=== PATIENT | female | born 1975 | race Caucasian/White ===

== ENCOUNTER → 2020-07-05 08:30 | Outpatient (BNVA) | payer OTHER, SELFPAY | PROVIDERS: Family Provider Family Medicine; PCP Nurse Practitioner Family; Referring Provider Orthopaedic Surgery; Visit Provider Anesthesiology Pain Medicine | DX: M54.9 Dorsalgia, unspecified (principal); M51.36 Other intervertebral disc degeneration, lumbar region; M43.10 Spondylolisthesis, site unspecified; M62.830 Muscle spasm of back | CPT/HCPCS: 99205 ==

== ENCOUNTER → 2020-08-02 12:57 | Outpatient (BNVA) | payer OTHER, SELFPAY | PROVIDERS: Family Provider Family Medicine; PCP Family Medicine; Visit Provider Anesthesiology Pain Medicine | DX: M54.42 Lumbago with sciatica, left side (principal); M54.9 Dorsalgia, unspecified; M51.36 Other intervertebral disc degeneration, lumbar region; M43.10 Spondylolisthesis, site unspecified; M62.830 Muscle spasm of back | CPT/HCPCS: 99214 ==

== ENCOUNTER → 2020-08-13 13:41 | Outpatient (BNVA) | payer OTHER, SELFPAY | PROVIDERS: Family Provider Family Medicine; PCP Family Medicine; Visit Provider Anesthesiology Pain Medicine | DX: M47.816 Spondylosis without myelopathy or radiculopathy, lumbar region (principal); M54.9 Dorsalgia, unspecified | CPT/HCPCS: 64493; 64494; 64495; J1040; J3490 ==

== ENCOUNTER → 2020-08-28 10:20 | Outpatient (BNVA) | payer OTHER, SELFPAY | PROVIDERS: Family Provider Family Medicine; PCP Family Medicine; Visit Provider Anesthesiology Pain Medicine | DX: M54.9 Dorsalgia, unspecified (principal); M51.36 Other intervertebral disc degeneration, lumbar region; M43.10 Spondylolisthesis, site unspecified; M62.830 Muscle spasm of back | CPT/HCPCS: 99213 ==

== ENCOUNTER → 2020-10-30 09:32 | Outpatient (BNVA) | payer OTHER, SELFPAY | PROVIDERS: Family Provider Family Medicine; PCP Family Medicine; Visit Provider Anesthesiology Pain Medicine | DX: G89.29 Other chronic pain (principal); M54.9 Dorsalgia, unspecified; M54.42 Lumbago with sciatica, left side; M51.36 Other intervertebral disc degeneration, lumbar region; M43.10 Spondylolisthesis, site unspecified; M79.605 Pain in left leg; M62.830 Muscle spasm of back | CPT/HCPCS: 99212; 99213 ==

== ENCOUNTER → 2021-09-03 09:23 | Outpatient (BNVA) | payer OTHER, SELFPAY | PROVIDERS: Family Provider Family Medicine; PCP Family Medicine; Visit Provider Clinical Nurse Specialist Adult Health | DX: R42 Dizziness and giddiness (principal); R11.10 Vomiting, unspecified | CPT/HCPCS: 80053; 80061; 83036; 83735; 85025; 86140; 86200 ==

== ENCOUNTER → 2021-10-18 08:54 | Outpatient (BNVA) | payer OTHER, BC, MEDICAID, SELFPAY | PROVIDERS: Family Provider Family Medicine; PCP Family Medicine; Visit Provider Clinical Nurse Specialist Adult Health | DX: R74.8 Abnormal levels of other serum enzymes (principal); E78.5 Hyperlipidemia, unspecified | CPT/HCPCS: 80061; 80076 ==

== ENCOUNTER 2021-11-17 11:35 | Emergency (ER) | payer OTHER, BC, MEDICAID, SELFPAY ==
[2021-11-17 11:47] VITALS: BP 160/106; PULSE 112; RESP 16; TEMP 36.2; O2SAT 99
--- NOTE | 2021-11-17 12:11 | W.ED.GENADLT ---
HPI - General Adult General: Chief complaint: General Medical Stated complaint: V/D muscle aches, Dissy Time Seen by Provider: 11/17/21 11:56 Source: patient and family Mode of arrival: ambulatory Limitations: no limitations History of Present Illness: This patient comes to emergency department accompanied by family member. She is here because she has had several months of episodic 2-3 duration hot flashes vomiting shaking and muscle cramps. She also gets associated episodes of vomiting without warning during these episodes. She occasionally gets loose stools. She states that symptoms onset was approximately March of last year and have been on a monthly basis since that time. She states that these last for 2 to 3 days of duration. She states that also since that time she is only had 1 episode of menstrual bleeding. She apparently seen a nurse practitioner for the symptoms who state they state get some blood work, gave her some BuSpar as well as some Zofran in an attempt to treat the symptoms. She is not receiving hormonal therapy. She occasionally uses medical marijuana because of chronic low back pain. She also occasionally uses cyclobenzaprine training for that same condition. She takes duloxetine but has done so for over a year. She also occasionally takes meloxicam for her back pain. She denies any fluctuations in blood pressure etc. with these episodes. She states she does feel occasional episodes of palpitations but has not had any syncope etc. No history of arrhythmias. She denies any focal weakness or numbness but just generalized cramping and restlessness. She occasionally drinks alcohol. She occasionally uses caffeinated beverages. No known history of periodic paralysis or potassium abnormalities in the family. No history pheochromocytoma in the family that she is aware. Pain Consistency: intermittent Associated symptoms: Reports nausea and vomiting; Deny chest pain, confusion, dyspnea, headache(s), rash or syncope Review of Systems Const: Denies: fever(s), chills, body aches or change in appetite Eyes: Denies: change in vision ENMT: Denies: odynophagia or nasal congestion Card: Denies: chest pain, irregular heart rhythm, edema, syncope, pre-syncope or dyspnea on exertion Resp: Denies: dyspnea, productive cough or non-productive cough GI: Reports: nausea, vomiting and diarrhea; Denies: hematemesis or constipation : Denies: flank pain, difficulty voiding, dysuria, urinary frequency, vaginal bleeding, vaginal discharge or pelvic pain Musc: Reports: back pain; Denies: neck pain or extremity swelling Skin/Breast: Denies: rash, pruritus or erythema Neuro: Denies: headache(s), numbness in extremities, weakness in extremities, vertigo or confusion Psych: Reports: anxiety, depression and mood swings; Denies: suicidal ideation or homicidal ideation Endo: Denies: polyuria or polydipsia Raymundo/Lymph: Denies: easy bruising or easy bleeding PFSH ED PFSH: Family History Father Cancer Clotting disorder Mother No pertinent past medical history Social History Smoking and tobacco status: former smoker (20 plus years ago) Alcohol intake: current Alcohol intake frequency: holidays/special occasions only Current occupational status: employed History of recent travel: No Physical Exam Narrative: EXAM NARRATIVE: Patient appears somewhat uncomfortable and slightly anxious but is able to answer questions in a goal-directed fashion. She makes good eye contact. Const: COMMON NORMALS: average body habitus, patient oriented x3, healthy appearing and alert GENERAL APPEARANCE: cooperative HENMT: COMMON NORMALS: normocephalic, Normal nasal mucous membranes and turbinates present and oropharynx normal HEAD & SCALP: normocephalic FACE & SINUS: normal facial exam NOSE: Normal nasal mucous membranes and turbinates present Eye: COMMON NORMALS: Equal, round and reactive pupils present, EOMs intact bilaterally and conjunctivae normal CONJUNCTIVA: Yes conjunctivae normal PUPIL: Yes Equal, round and reactive pupils present Neck/C-Spine: COMMON NORMALS: full ROM, no lymphadenopathy, no JVD, Thyroid normal and No carotid bruits THYROID: Thyroid normal Lymph: LYMPHATIC: no lymphadenopathy noted Chest: COMMONS NORMALS: normal inspection of the chest Resp: COMMON NORMALS: normal respiratory effort, No retractions, No use of accessory muscles and clear to auscultation bilaterally EFFORT & INSPECTION: Yes able to speak in complete sentences AUSCULTATION: clear to auscultation bilaterally Cardio: COMMON NORMALS: no JVD, regular rate, regular rhythm, No murmurs present (Cardio) and Peripheral pulses 2+ throughout RATE: regular rate RHYTHM: regular rhythm PERIPHERAL PULSES: Peripheral pulses 2+ throughout GI: COMMON NORMALS: Normal to inspection, nondistended, normoactive bowel sounds present, Soft to palpation, non-tender, No hepatosplenomegaly present, no masses and no bruits PALPATION: Yes Soft to palpation and Yes No hepatosplenomegaly present : COMMON NORMALS: Yes no CVA tenderness BLADDER/KIDNEY EXAM: Yes no CVA tenderness Back/Pelvis: COMMON NORMALS: no CVA tenderness, thoracic and lumbar spine normal to inspection, no thoracic nor lumbar tenderness, thoraco-lumbar ROM normal and straight leg raise negative bilaterally Extremity: COMMON NORMALS: normal to inspection, full ROM, capillary refill normal, no joint enlargement, no clubbing, cyanosis or edema, no calf tenderness and no pedal edema Neuro: COMMON NORMALS: patient oriented x3, moves all extremities, no focal motor deficits and no sensory deficits noted SENSORIUM/ORIENTATION: Yes alert CRANIAL NERVES: Yes CN normal except as noted SPEECH: speech normal Psych: COMMON NORMALS: mental status grossly normal, Normal thought process present, speech normal, denies hallucinations, denies homicidal ideation and denies suicidal ideation ACTIVITY/MOTOR BEHAVIOR: Yes restless SPEECH: Yes normal speech THOUGHT PROCESS: Normal thought process present Skin: COMMON NORMALS: no rashes or lesions noted, no wounds, turgor normal and no jaundice GENERAL SKIN EXAM: no rashes or lesions noted and turgor normal Course Reevaluation(s): Reevaluation #1: Patient is feeling improved. Discussed current findings. She has an incidental urinary tract infection we will go ahead and provide treatment. I do not feel that this is a significant factor in her current presentation however. She also has incidental hypomagnesemia. Whether or not this represents total magnesium deficit or not is not clear but it certainly could contribute to her subjective muscle cramping. Her FSH is elevated not to a perimenopausal state but certainly in the level 1 would expect with ovulation and apparently she is having ovulatory phase failure given her lack of menses for the last several months. She certainly clinically stable and improved and no evidence of an ongoing emergency medical condition but she needs additional work-up. We will plan on having her see gynecology for further evaluation and consideration of empiric therapy. They voiced understanding the plan of care. Stable at this time. Time: 15:11 Vital Signs: Vital signs: Vital Signs Temperature 97.1 F L 11/17/21 11:47 Pulse Rate 112 H 11/17/21 11:47 Respiratory Rate 16 11/17/21 11:47 Blood Pressure 160/106 11/17/21 11:47 Pulse Oximetry 99 11/17/21 11:47 MDM - General Adult Medical Decision Making Patient with clinical picture and subjective symptoms suggestive of perimenopausal symptoms. She does have history of having being amenorrheic for several months as well. No evidence at this time of an ongoing serious condition. She is subjectively improved. She is being treated for an incidental urinary tract infection and advised to take magnesium supplements. She will need further follow-up and she understands that plan of care. Lab Data I reviewed the patient's lab results. : 11/17/21 12:20 11/17/21 13:24 Laboratory Results WBC 10.0 10^3/uL (4.0-10.0) 11/17/21 12:20 RBC 4.57 10^6/uL (4.1-5.3) 11/17/21 12:20 Hgb 13.5 g/dL (11.5-15.3) 11/17/21 12:20 Hct 39.1 % (37.0-47.0) 11/17/21 12:20 MCV 85.6 fl (81-99) 11/17/21 12:20 MCH 29.5 pg (28.0-34.0) 11/17/21 12:20 MCHC 34.5 g/dL (30.0-36.0) 11/17/21 12:20 RDW 15.7 % (12.1-15.1) H 11/17/21 12:20 Plt Count 331 10^3/cmm (130-400) 11/17/21 12:20 MPV 9.9 fL (7.4-10.4) 11/17/21 12:20 Neut % (Auto) 79.7 % 11/17/21 12:20 Lymph % (Auto) 8.9 % 11/17/21 12:20 Bond % (Auto) 9.8 % 11/17/21 12:20 Eos % (Auto) 0.4 % 11/17/21 12:20 Baso % (Auto) 0.8 % 11/17/21 12:20 Neut # (Auto) 8.01 10^3/uL (1.8-7.7) H 11/17/21 12:20 Lymph # (Auto) 0.9 10^3/uL (0.8-4.8) 11/17/21 12:20 Bond # (Auto) 1.0 10^3/uL (0.2-0.9) H 11/17/21 12:20 Eos # (Auto) 0.0 10^3/uL (0.0-0.8) 11/17/21 12:20 Baso # (Auto) 0.1 10^3/uL (0.0-0.1) 11/17/21 12:20 Nucleated RBC % (auto) 0 % 11/17/21 12:20 Nucleated RBCs # 0.0 /100WBC 11/17/21 12:20 Sodium 139 mmol/L (136-145) 11/17/21 13:24 Potassium 3.7 mmol/L (3.5-5.1) 11/17/21 13:24 Chloride 98 mmol/L (98-107) 11/17/21 13:24 Carbon Dioxide 21 mmol/L (22-29) L 11/17/21 13:24 Anion Gap 23.7 (5-19) H 11/17/21 13:24 BUN 11 mg/dL (6-20) 11/17/21 13:24 Creatinine 0.8 mg/dL (0.5-0.9) 11/17/21 13:24 GFR Calculation 77.6 mL/min (90-130) L 11/17/21 13:24 Glucose 87 mg/dL (65-115) 11/17/21 13:24 Calculated Osmolality 287 mOsm/kg (285-295) 11/17/21 13:24 Calcium 8.9 mg/dL (8.5-10.5) 11/17/21 13:24 Magnesium 1.6 mg/dL (1.7-2.3) L 11/17/21 13:24 Total Bilirubin 0.6 mg/dL (0.15-1.2) 11/17/21 13:24 AST 90 U/L (0-32) H 11/17/21 13:24 ALT 47 U/L (0-33) H 11/17/21 13:24 Alkaline Phosphatase 114 IU/L (35-105) H 11/17/21 13:24 Total Protein 7.3 g/dL (6.6-8.7) 11/17/21 13:24 Albumin 4.2 g/dL (3.5-5.2) 11/17/21 13:24 Globulin 3.1 g/dL (1.3-4.6) 11/17/21 13:24 TSH 2.76 uIU/mL (0.27-4.20) 11/17/21 13:24 FSH 18.1 mIU/mL 11/17/21 13:24 HCG, Qual Negative (Negative) 11/17/21 12:20 Urine Color Yellow (Yellow) 11/17/21 12:20 Urine Appearance Sl hazy (CLEAR) 11/17/21 12:20 Urine pH 6 (5-7) 11/17/21 12:20 Ur Specific [place] 1.015 (1.005-1.030) 11/17/21 12:20 Urine Protein Neg (Negative) 11/17/21 12:20 Urine Glucose (UA) Norm (Normal) 11/17/21 12:20 Urine Ketones 1+ (Negative) H 11/17/21 12:20 Urine Blood Trace (Negative) H 11/17/21 12:20 Urine Nitrate Negative (Negative) 11/17/21 12:20 Urine Bilirubin Neg (Negative) 11/17/21 12:20 Urine Urobilinogen Norm mg/dL (Negative) 11/17/21 12:20 Ur Leukocyte Esterase Negative (Negative) 11/17/21 12:20 Urine RBC Rare /hpf (0-2) 11/17/21 12:20 Urine WBC 15-25 /hpf (0-5) H 11/17/21 12:20 Ur Squamous Epith Cells 5-10 /hpf (0-5) H 11/17/21 12:20 Amorphous Sediment Not Reportable 11/17/21 12:20 Urine Bacteria 1+ /hpf (NONE) H 11/17/21 12:20 EKG Data EKG 1: Interpretation: Patient's ventricular rate is 97 bpm. She has suggestion of possible left atrial enlargement on voltage criteria. She has normal [place] interval normal QRS duration. QTc is normal. [place] are all normal. ST segments are up coved and I do not feel that this is a significant change despite computerized statement. Discharge Plan Discharge Patient Disposition: Home Clinical Impression: Hot flushes, perimenopausal, Hypomagnesemia, Urinary tract infection Condition: Stable Prescriptions: New Ativan 1 mg tablet 1 mg PO DAILY MDD 1mg PRN (Reason: agitation) Qty: 7 0RF nitrofurantoin monohyd/m-cryst [Macrobid] 100 mg capsule 100 mg PO BID 5 Days Qty: 10 0RF Rx Instructions: must administer with a meal/food No Action meloxicam 15 mg tablet 15 mg PO DAILY 0RF cyclobenzaprine 10 mg tablet 10 mg PO DAILY 0RF duloxetine [Cymbalta] 20 mg capsule,delayed release(DR/EC) 20 mg PO BID 0RF alprazolam [Xanax] 0.25 mg tablet 0.25 mg PO DAILY PRN0RF Discharge Orders: Discharge ED (Routine); Ordered 11/17/21 Ordered By: Garry Ham Referrals: David Carlos DO [Primary Care Provider] - Discharge Diet: Usual diet Discharge Activity: Increase activity as tolerated Patient Instructions: Menopause, Opioid Safety Activity Restrictions/Additional Instructions: Take the medications we have prescribed to help with your symptoms. Also purchase magnesium oxide 400 mg tablets and take 1 of these twice daily. Case management will contact you regarding gynecology referral or you may contact gynecology at your own choosing. If you develop new or persistent or worsening symptoms return to this or the nearest emergency department. Coding Level of Care Code ED Computer Systems Administrator for Pricila Mcmahon Exam Comprehensive
--- NOTE | 2021-11-17 12:19 | ECG_ITS ---
[facility] Test Date: 2021-11-17 Pat Name: Corina Presley Department: Room: Gender: Female [employer] Preparer: : 1975 Requested By: Garry Ham Order Number: [id number] Pierson MD: Roly Arias M.D. Measurements Intervals [place] Rate: 97 P: 72 [place]: 133 QRS: 55 QRSD: 86 T: 45 QT: 355 QTc: 452 Interpretive Statements SINUS RHYTHM POSSIBLE LEFT ATRIAL ENLARGEMENT [-0.1mV P WAVE IN V1/V2] MODERATE ST DEPRESSION [0.05+ mV ST DEPRESSION] No previous ECG available for comparison Electronically Signed On 11-18-2021 18:14:24 CDT by Roly Arias M.D. [id number]
[2021-11-17] MEDS: lactated ringers 1,000 ML 999 ML IV (12:34)
[2021-11-17] MEDS: LORazepam 2 mg/mL INJ 1 mL 1 MG IVP (12:35)
[2021-11-17 13:00] LABS: Basophils # 0.1 10^3/uL (0.0-0.1); Basophils % 0.8 %; Eosinophils % 0.4 %; Hematocrit 39.1 % (37.0-47.0); Hemoglobin 13.5 g/dL (11.5-15.3); Lymphocytes # 0.9 10^3/uL (0.8-4.8); Lymphocytes % 8.9 %; Mean Corpuscular HGB Conc 34.5 g/dL (30.0-36.0); Mean Corpuscular Hemoglobin 29.5 pg (28.0-34.0); Mean Corpuscular Volume 85.6 fl (81-99); Mean Platelet Volume 9.9 fL (7.4-10.4); Monocytes % 9.8 %; Neutrophils # 8.01 10^3/uL (1.8-7.7); Neutrophils % 79.7 %; Nucleated Red Blood Cells % 0 %; Platelet Count 331 10^3/cmm (130-400); Red Blood Count 4.57 10^6/uL (4.1-5.3); Red Cell Distribution Width 15.7 % (12.1-15.1)
[2021-11-17 13:12] LABS: HCG Qualitative Urine. Negative (Negative)
[2021-11-17 13:22] LABS: Add Urine Microscopic? YES; Bilirubin Urine Neg (Negative); Blood Urine Trace (Negative); Glucose Urine UA Norm (Normal); Ketones Urine 1+ (Negative); Leukocyte Esterase Urine Negative (Negative); Nitrate Urine Negative (Negative); Protein Urine Neg (Negative); Specific Gravity, Urine 1.015 (1.005-1.030); Urine Appearance SL Hazy (CLEAR); Urine Color Yellow (Yellow); Urobilinogen Urine Norm (Negative); pH Urine 6 (5-7)
[2021-11-17 13:23] LABS: RBC Urine RARE /hpf (0-2); WBC Urine 15-25 /hpf (0-5)
[2021-11-17 13:24] LABS: Bacteria Urine 1+ /hpf
[2021-11-17 13:25] LABS: Add Urine Culture? No
[2021-11-17 14:14] LABS: Alanine Aminotransferase 47 U/L (0-33); Albumin Level 4.2 g/dL (3.5-5.2); Alkaline Phosphatase 114 IU/L (35-105); Anion Gap 23.7 (5-19); Aspartate Amino Transferase 90 U/L (0-32); Blood Urea Nitrogen 11 mg/dL (6-20); Calcium 8.9 mg/dL (8.5-10.5); Carbon Dioxide 21 mmol/L (22-29); Chloride 98 mmol/L (98-107); Follicle Stimulating Hormone 18.1 mIU/mL; Globulin 3.1 g/dL (1.3-4.6); Glomerular Filtration Rate 77.6 mL/min (90-130); Glucose 87 mg/dL (65-115); Magnesium 1.6 mg/dL (1.7-2.3); Osmolality Calculated 287 mOsm/kg (285-295); Potassium 3.7 mmol/L (3.5-5.1); Sodium 139 mmol/L (136-145); Thyroid Stimulating Hormone 2.76 uIU/mL (0.27-4.20); Total Bilirubin 0.6 mg/dL (0.15-1.2); Total Protein 7.3 g/dL (6.6-8.7)
[2021-11-17 15:32] VITALS: BP 149/107; PULSE 101; RESP 20; O2SAT 100
--- NOTE | 2021-11-18 13:50 | DCPLANNER ---
Addendum entered by Anastasiia Erwin 12/24/21 16:20: Patient had a follow up appointment scheduled with [facility] - patient did attend appointment. Addendum entered by Anastasiia Erwin 11/26/21 14:30: Patient has a follow up appointment scheduled for Thursday, December 11, 2021 at 9:30 with Noé GUZMAN at [facility]. Clinic will call patient with appointment information. Original Note: administration manager had message to schedule a follow up appointment for patient with [facility]. administration manager sent patients information to the front office staff at [facility]. Patients information will be printed and reviewed. Clinic will call patient with appointment information.
== END 2021-11-17 15:33 | disposition home or self-care (01) ==
PROVIDERS: Emergency Provider Emergency Medicine; PCP Family Medicine
DX: N95.1 Menopausal and female climacteric states (principal); N39.0 Urinary tract infection, site not specified; E83.42 Hypomagnesemia; Z87.891 Personal history of nicotine dependence
CPT/HCPCS: 80053; 81001; 81025; 83001; 83735; 84443; 85025; 93005; 96374; 99284; J2060

== ENCOUNTER → 2021-12-11 10:36 | Outpatient (BNVA) | payer OTHER, BC, MEDICAID, SELFPAY | PROVIDERS: PCP Family Medicine; Visit Provider Nurse Practitioner Women's Health | DX: Z01.419 Encounter for gynecological examination (general) (routine) without abnormal findings (principal); N91.5 Oligomenorrhea, unspecified; N91.2 Amenorrhea, unspecified; N95.1 Menopausal and female climacteric states; Z12.4 Encounter for screening for malignant neoplasm of cervix | CPT/HCPCS: 82670; 84146; 84702; 87624 ==

== ENCOUNTER → 2021-12-17 13:46 | Outpatient (BNVA) | payer OTHER, BC, MEDICAID, SELFPAY | PROVIDERS: PCP Family Medicine; Visit Provider Nurse Practitioner Women's Health | DX: N91.2 Amenorrhea, unspecified (principal) | CPT/HCPCS: 76830 ==

== ENCOUNTER → 2023-02-09 12:12 | Outpatient (BNVA) | payer BC, MEDICAID, SELFPAY | PROVIDERS: PCP Clinical Nurse Specialist Adult Health; Visit Provider Internal Medicine Rheumatology | DX: Z79.899 Other long term (current) drug therapy (principal); M19.90 Unspecified osteoarthritis, unspecified site; Z11.59 Encounter for screening for other viral diseases; M45.6 Ankylosing spondylitis lumbar region; Z11.1 Encounter for screening for respiratory tuberculosis; R76.8 Other specified abnormal immunological findings in serum; I73.00 Raynaud's syndrome without gangrene; R21 Rash and other nonspecific skin eruption; L56.8 Other specified acute skin changes due to ultraviolet radiation | CPT/HCPCS: 36415; 80076; 82306; 82565; 84439; 84443; 85025; 85651; 86480; 86704; 86803; 86812; 87340 ==

== ENCOUNTER 2023-09-08 15:51 | Outpatient (CLI) | payer BC, MEDICAID, SELFPAY ==
[2023-09-08 16:26] LABS: Basophils # 0.1 10^3/uL (0.0-0.1); Eosinophils # 0.2 10^3/uL (0.0-0.8); Eosinophils % 4.8 %; Hematocrit 34.1 % (36-47); Lymphocytes # 1.6 10^3/uL (0.8-4.8); Lymphocytes % 32.6 %; Mean Corpuscular HGB Conc 33.1 g/dL (30-55); Mean Corpuscular Hemoglobin 32.1 pg (27-33); Mean Corpuscular Volume 96.9 fl (85-98); Mean Platelet Volume 10.3 fL (7.4-10.4); Monocytes # 0.5 10^3/uL (0.2-0.9); Monocytes % 9.8 %; Neutrophils # 2.46 10^3/uL (1.8-7.7); Neutrophils % 51.6 %; Nucleated Red Blood Cells % 0 %; Platelet Count 222 10^3/cmm (157-399); Red Blood Count 3.52 10^6/uL (3.85-5.65); Red Cell Distribution Width 16.2 % (12.1-15.1); White Blood Count 4.78 10^3/uL (3.29-11.43)
[2023-09-08 17:22] LABS: Alanine Aminotransferase 18 U/L (0-33); Albumin Level 4.5 g/dL (3.5-5.2); Alkaline Phosphatase 81 U/L (35-105); Aspartate Amino Transferase 23 U/L (0-32); Glomerular Filtration Rate 76.9 mL/min (90-130); Total Bilirubin 0.6 mg/dL (0.15-1.2); Total Protein 7.5 g/dL (6.6-8.7)
== END 2023-09-08 15:52 | disposition home or self-care (01) ==
LOC: LAB 15:53
PROVIDERS: PCP Nurse Practitioner Family; Visit Provider Internal Medicine Rheumatology
DX: M19.90 Unspecified osteoarthritis, unspecified site (principal); Z79.899 Other long term (current) drug therapy
CPT/HCPCS: 36415; 80076; 82565; 85025; 86140

== ENCOUNTER 2024-06-26 16:49 | Emergency (ER) | payer BC, MEDICAID, SELFPAY ==
[2024-06-26] VITALS (7 sets, daily range): BP systolic 149–167; BP diastolic 95–113; PULSE 76–88; RESP 16–17; TEMP 36.5; O2SAT 98–100; BMI 24.9
--- NOTE | 2024-06-26 17:26 | W.ED.HA ---
Documented by User: Christie Ordaz MD 06/26/24 17:32 HPI - Headache General: Chief Complaint: Headache Stated Complaint: migraine Time Seen by Provider: 06/26/24 17:12 History of Present Illness: This patient is a 48-year-old female presenting with what she believes to be a migraine headache. She reports a history of migraines but has not had one in several years. When she has had them they have been similar to the symptoms she has currently. This headache started around 2 this afternoon. She reports that she has been sick for the past few days. On she had an episode of vomiting and diarrhea. She has not had any further vomiting but does continue to have diarrhea. She slept a lot Thursday and Thursday but this morning got up feeling well. She cleaned the house. She felt the headache coming on and took some ibuprofen and went to lay down. Initially she thought it was just an average headache but it continued to worsen. She then thought it was probably a migraine and took 50 mg of sumatriptan. An hour later when she did not have relief she took a second dose which also did not help. She notes that the prescription is from 2020 and is . She is having trouble focusing to read. She is having trouble thinking. Her pain is in the back of her head as well as over across her forehead. It is worse with being up and moving around. Noise and light make it worse. She is nauseous but has not vomited. She notes that she is frequently nauseous and does not really think that is unusual today. Her medication list includes a number of things that she is not actually taking and has not been on for around a year. She has seen a trademark paralegal for joint pain and swelling and had positive ISAIAH. She does not think she ever got a definitive diagnosis. She had been on several different types of medication for her rheumatologic symptoms but they all seem to make her sick so she has not been on any of them for nearly a year. She denies other significant medical history. She does have some chronic lower back pain. She has had injections of her SI joints and nerve ablation with the most recent being done this past summer. Related Data Home Medications ?Medication ?Instructions ?Recorded ?Confirmed cyclobenzaprine 10 mg tablet 10 mg PO DAILY 02/09/23 12/21/23 Previous Rx's ?Medication ?Instructions ?Recorded alprazolam 0.25 mg tablet 0.25 mg PO DAILY #30 tabs 03/12/22 folic acid 1 mg tablet 1 mg PO DAILY #90 tabs 12/21/23 methotrexate sodium 25 mg/mL 20 mg (0.8 mL) SUBCUT .Q7days #10 12/21/23 injection solution mL prednisone 20 mg tablet See Rx Instructions PO .COMPLEX 12/21/23 PRN joint pain flare #30 tabs syringe with needle 1 mL 28 gauge #25 ea 12/21/23 x 1/2 (Monoject TB) ondansetron 4 mg disintegrating 4 mg PO Q6H PRN nausea and 06/26/24 tablet vomiting #20 tabs sumatriptan succinate 100 mg tablet See Rx Instructions PO .COMPLEX 06/26/24 #14 tabs Allergies Allergy/AdvReac Type Severity Reaction Status Date / Time amlodipine AdvReac Intermediate rash all Verified 06/26/24 17:09 over hydroxychloroquine AdvReac Intermediate itch all Verified 06/26/24 17:09 over severe leflunomide AdvReac Intermediate n/v Verified 06/26/24 17:09 PFSH ED PFSH: Medical History Photosensitivity Skin rash Raynaud's disease without gangrene Positive ISAIAH (antinuclear antibody) Inflammatory arthritis Anxiety Migraine with aura No pertinent past medical history neghx: htn,dm,thyroid,dvt/pe PCP: Pascual Hoskins Hx of ectopic (~1992) tube salvaged-- she feels this was her left side Surgical History Hx of section (~2010) Hx of exploratory laparotomy (~1992) Diagnosed with endometriosis Family History Father Heart disease Hypercholesteremia Hypertension Cancer malignant melanoma with mets Other Family history of premature coronary artery disease Denies family history of Rheumatoid arthritis Colon cancer Ovarian cancer Diabetes Lupus Breast cancer Uterine cancer Thyroid disease Stroke Social History Smoking and tobacco/nicotine status: never used tobacco/nicotine Substance/Drug Use: never Physical Exam Const: COMMON NORMALS: patient oriented x3, no limitations and alert GENERAL APPEARANCE: cooperative HENMT: HEAD & SCALP: normal to inspection FACE & SINUS: normal facial exam Eye: GENERAL EYE: appearance normal, both eyes and all related structures Neck/C-Spine: COMMON NORMALS: supple, no meningeal signs and no JVD Chest: COMMONS NORMALS: normal inspection of the chest Resp: COMMON NORMALS: normal respiratory effort, No use of accessory muscles and clear to auscultation bilaterally AUSCULTATION: clear to auscultation bilaterally Cardio: COMMON NORMALS: no JVD, regular rate, regular rhythm and No murmurs present (Cardio) RATE: regular rate RHYTHM: regular rhythm GI: COMMON NORMALS: Normal to inspection, nondistended, normoactive bowel sounds present, Soft to palpation and non-tender INSPECTION: Yes normal to inspection AUSCULTATION: Yes normoactive bowel sounds PALPATION: Yes Soft to palpation Back/Pelvis: COMMON NORMALS: thoracic and lumbar spine normal to inspection Extremity: COMMON NORMALS: normal to inspection Neuro: COMMON NORMALS: patient oriented x3, moves all extremities, no focal motor deficits and no sensory deficits noted SENSORIUM/ORIENTATION: Yes alert MENINGEAL SIGNS: Yes no meningeal signs Psych: COMMON NORMALS: mental status grossly normal, cooperative and normal affect Skin: COMMON NORMALS: no rashes or lesions noted and turgor normal GENERAL SKIN EXAM: no rashes or lesions noted and turgor normal Course Vital Signs: Vital signs: Vital Signs Temperature 97.7 F 06/26/24 17:00 Pulse Rate 77 06/26/24 20:30 Respiratory Rate 16 06/26/24 19:54 Blood Pressure 150/101 06/26/24 20:30 Pulse Oximetry 98 06/26/24 20:30 Oxygen Delivery Me thod Room Air 06/26/24 20:30 MDM - Headache Medical Decision Making History of migraine with aura. This appears to be similar to her prior symptoms. There was fairly gradual in onset this afternoon. It did not improve with sumatriptan hand but the pills are by several years. Given the recent episodes of vomiting and diarrhea I do have some concern for infection. Fortunately she is not currently on any immune modifying treatments. I will get a CBC, CMP, serum , sed rate to look for any evidence of infection but clinically I suspect this is migraine. Diphenhydramine and prochlorperazine have been ordered IV as well as an IV bolus of normal saline. Her neuroexam is nonfocal at this time but if she is not improving with treatment as expected she may require a CT scan. Lab Data 06/26/24 18:12 06/26/24 19:[address] 06/26/24 19:24 IMPRESSION: No acute intracranial abnormality. Laboratory Results WBC 6.44 10^3/uL (3.29-11.43) 06/26/24 18:12 RBC 4.23 10^6/uL (3.85-5.65) 06/26/24 18:12 Hgb 13.20 g/dL (11.27-16.99) 06/26/24 18:12 Hct 39.2 % (36-47) 06/26/24 18:12 MCV 92.7 fl (85-98) 06/26/24 18:12 MCH 31.2 pg (27-33) 06/26/24 18:12 MCHC 33.7 g/dL (30-55) 06/26/24 18:12 RDW 13.7 % (12.1-15.1) 06/26/24 18:12 Plt Count 226 10^3/cmm (157-399) 06/26/24 18:12 MPV 10.9 fL (7.4-10.4) H 06/26/24 18:12 Neut % (Auto) 68.4 % 06/26/24 18:12 Lymph % (Auto) 19.3 % 06/26/24 18:12 [place] % (Auto) 8.1 % 06/26/24 18:12 Eos % (Auto) 3.1 % 06/26/24 18:12 Baso % (Auto) 0.9 % 06/26/24 18:12 Neut # (Auto) 4.41 10^3/uL (1.8-7.7) 06/26/24 18:12 Lymph # (Auto) 1.2 10^3/uL (0.8-4.8) 06/26/24 18:12 [place] # (Auto) 0.5 10^3/uL (0.2-0.9) 06/26/24 18:12 Eos # (Auto) 0.2 10^3/uL (0.0-0.8) 06/26/24 18:12 Baso # (Auto) 0.1 10^3/uL (0.0-0.1) 06/26/24 18:12 Nucleated RBC % (auto) 0 % 06/26/24 18:12 Nucleated RBCs # 0.0 /100WBC 06/26/24 18:12 ESR 1 mm/hr (0-15) 06/26/24 18:12 Sodium 136 mmol/L (136-145) 06/26/24 19:08 Potassium 3.6 mmol/L (3.5-5.1) 06/26/24 19:08 Chloride 103 mmol/L (98-107) 06/26/24 19:08 Carbon Dioxide 19 mmol/L (22-29) L 06/26/24 19:08 Anion Gap 17.6 (5-19) 06/26/24 19:08 BUN 11 mg/dL (6-20) 06/26/24 19:08 Creatinine 0.9 mg/dL (0.5-0.9) 06/26/24 19:08 GFR Calculation 67.1 mL/min (90-130) L 06/26/24 19:08 Glucose 101 mg/dL (65-115) 06/26/24 19:08 Calculated Osmolality 282 mOsm/kg (285-295) L 06/26/24 19:08 Calcium 9.7 mg/dL (8.5-10.5) 06/26/24 19:08 Total Bilirubin 0.7 mg/dL (0.15-1.2) 06/26/24 19:08 AST 26 U/L (0-32) 06/26/24 19:08 ALT 20 U/L (0-33) 06/26/24 19:08 Alkaline Phosphatase 88 U/L (35-105) 06/26/24 19:08 Total Protein 7.9 g/dL (6.6-8.7) 06/26/24 19:08 Albumin 4.5 g/dL (3.5-5.2) 06/26/24 19:08 Globulin 3.4 g/dL (1.3-4.6) 06/26/24 19:08 HCG, Qual Negative (Negative) 06/26/24 18:12 Influenza A (PCR) Negative (Negative) 06/26/24 18:05 Influenza Type B (PCR) Negative (Negative) 06/26/24 18:05 RSV (PCR) Negative (Negative) 06/26/24 18:05 SARS-CoV-2 (PCR) Negative (Negative) 06/26/24 18:05 Discharge Plan Discharge Patient Disposition: Home Clinical Impression: Headache Condition: Stable Prescriptions: New sumatriptan succinate 100 mg tablet See Rx Instructions .ROUTE .COMPLEX Qty: 14 0RF Rx Instructions: take 1 tab at onset of headache; if no relief, may repeat 1 tab after at least 2 hrs; max = 2 tabs/24 hrs Continued ondansetron 4 mg tablet,disintegrating 4 mg PO Q6H PRN (Reason: nausea and vomiting) Qty: 20 2RF No Action folic acid 1 mg tablet 1 mg PO DAILY Qty: 90 3RF methotrexate sodium 25 mg/mL solution 20 mg SUBCUT .Q7days Qty: 10 1RF (DME) Monoject TB 1 mL 28 gauge x 1/2 syringe See Rx Instructions .Route Qty: 25 1RF Rx Instructions: As directed prednisone 20 mg tablet See Rx Instructions PO .COMPLEX PRN (Reason: joint pain flare) Qty: 30 1RF Rx Instructions: take 1 or 2 tab daily for 3-7 days as needed for arthritis flare PO PRN; cyclobenzaprine 10 mg tablet 10 mg PO DAILY alprazolam 0.25 mg tablet 0.25 mg PO DAILY Qty: 30 0RF Discharge Orders: Discharge ED (Routine); Ordered 06/26/24 Ordered By: Steven George Referrals: Katerin Hughes FNP [Primary Care Provider] - 1-3 days Patient Instructions: Acute Headache (ED), Opioid Safety, Pain Management Activity Restrictions/Additional Instructions: Drink plenty of clear liquids to stay hydrated. Keep checking your blood pressure. Treat with your medication if numbers are above 150/90. Other medications prescribed today as directed. Return for any problems. Call your doctor and be seen this week. Print Language: Mohawk Coding Level of Care Code ED Blanking Machine Operator for Chg Fwd Documented by User: Steven George, DO 06/26/24 20:39 HPI - Headache General: Chief Complaint: Headache Stated Complaint: migraine Time Seen by Provider: 06/26/24 17:12 Related Data Home Medications ?Medication ?Instructions ?Recorded ?Confirmed cyclobenzaprine 10 mg tablet 10 mg PO DAILY 02/09/23 12/21/23 Previous Rx's ?Medication ?Instructions ?Recorded alprazolam 0.25 mg tablet 0.25 mg PO DAILY #30 tabs 03/12/22 folic acid 1 mg tablet 1 mg PO DAILY #90 tabs 12/21/23 methotrexate sodium 25 mg/mL 20 mg (0.8 mL) SUBCUT .Q7days #10 12/21/23 injection solution mL prednisone 20 mg tablet See Rx Instructions PO .COMPLEX 12/21/23 PRN joint pain flare #30 tabs syringe with needle 1 mL 28 gauge #25 ea 12/21/23 x 1/2 (Monoject TB) ondansetron 4 mg disintegrating 4 mg PO Q6H PRN nausea and 06/26/24 tablet vomiting #20 tabs sumatriptan succinate 100 mg tablet See Rx Instructions PO .COMPLEX 06/26/24 #14 tabs Allergies Allergy/AdvReac Type Severity Reaction Status Date / Time amlodipine AdvReac Intermediate rash all Verified 06/26/24 17:09 over hydroxychloroquine AdvReac Intermediate itch all Verified 06/26/24 17:09 over severe leflunomide AdvReac Intermediate n/v Verified 06/26/24 17:09 PFSH ED PFSH: Medical History Photosensitivity Skin rash Raynaud's disease without gangrene Positive ISAIAH (antinuclear antibody) Inflammatory arthritis Anxiety Migraine with aura No pertinent past medical history neghx: htn,dm,thyroid,dvt/pe PCP: Pascual Hoskins Hx of ectopic (~1992) tube salvaged-- she feels this was her left side Surgical History Hx of section (~2010) Hx of exploratory laparotomy (~1992) Diagnosed with endometriosis Family History Father Heart disease Hypercholesteremia Hypertension Cancer malignant melanoma with mets Other Family history of premature coronary artery disease Denies family history of Rheumatoid arthritis Colon cancer Ovarian cancer Diabetes Lupus Breast cancer Uterine cancer Thyroid disease Stroke Social History Smoking and tobacco/nicotine status: never used tobacco/nicotine Substance/Drug Use: never Course Vital Signs: Vital signs: Vital Signs Temperature 97.7 F 06/26/24 17:00 Pulse Rate 77 06/26/24 20:30 Respiratory Rate 16 06/26/24 19:54 Blood Pressure 150/101 06/26/24 20:30 Pulse Oximetry 98 06/26/24 20:30 Oxygen Delivery Me thod Room Air 06/26/24 20:30 MDM - Headache Medical Decision Making History of migraine with aura. This appears to be similar to her prior symptoms. There was fairly gradual in onset this afternoon. It did not improve with sumatriptan hand but the pills are by several years. Given the recent episodes of vomiting and diarrhea I do have some concern for infection. Fortunately she is not currently on any immune modifying treatments. I will get a CBC, CMP, serum , sed rate to look for any evidence of infection but clinically I suspect this is migraine. Diphenhydramine and prochlorperazine have been ordered IV as well as an IV bolus of normal saline. Her neuroexam is nonfocal at this time but if she is not improving with treatment as expected she may require a CT scan. Patient is checked out at shift change. On my reexamination, she is mildly improved. CT scan has been completed. It is negative. Other laboratory not remarkable. She received Toradol fentanyl and Zofran with significant improvement in her head. Blood pressure is elevated still. She is getting some Vasotec for that. She is asking to go home. Will allow home at this point. Lab Data 06/26/24 18:12 06/26/24 19:[address] 06/26/24 19:24 IMPRESSION: No acute intracranial abnormality. Laboratory Results WBC 6.44 10^3/uL (3.29-11.43) 06/26/24 18:12 RBC 4.23 10^6/uL (3.85-5.65) 06/26/24 18:12 Hgb 13.20 g/dL (11.27-16.99) 06/26/24 18:12 Hct 39.2 % (36-47) 06/26/24 18:12 MCV 92.7 fl (85-98) 06/26/24 18:12 MCH 31.2 pg (27-33) 06/26/24 18:12 MCHC 33.7 g/dL (30-55) 06/26/24 18:12 RDW 13.7 % (12.1-15.1) 06/26/24 18:12 Plt Count 226 10^3/cmm (157-399) 06/26/24 18:12 MPV 10.9 fL (7.4-10.4) H 06/26/24 18:12 Neut % (Auto) 68.4 % 06/26/24 18:12 Lymph % (Auto) 19.3 % 06/26/24 18:12 [place] % (Auto) 8.1 % 06/26/24 18:12 Eos % (Auto) 3.1 % 06/26/24 18:12 Baso % (Auto) 0.9 % 06/26/24 18:12 Neut # (Auto) 4.41 10^3/uL (1.8-7.7) 06/26/24 18:12 Lymph # (Auto) 1.2 10^3/uL (0.8-4.8) 06/26/24 18:12 [place] # (Auto) 0.5 10^3/uL (0.2-0.9) 06/26/24 18:12 Eos # (Auto) 0.2 10^3/uL (0.0-0.8) 06/26/24 18:12 Baso # (Auto) 0.1 10^3/uL (0.0-0.1) 06/26/24 18:12 Nucleated RBC % (auto) 0 % 06/26/24 18:12 Nucleated RBCs # 0.0 /100WBC 06/26/24 18:12 ESR 1 mm/hr (0-15) 06/26/24 18:12 Sodium 136 mmol/L (136-145) 06/26/24 19:08 Potassium 3.6 mmol/L (3.5-5.1) 06/26/24 19:08 Chloride 103 mmol/L (98-107) 06/26/24 19:08 Carbon Dioxide 19 mmol/L (22-29) L 06/26/24 19:08 Anion Gap 17.6 (5-19) 06/26/24 19:08 BUN 11 mg/dL (6-20) 06/26/24 19:08 Creatinine 0.9 mg/dL (0.5-0.9) 06/26/24 19:08 GFR Calculation 67.1 mL/min (90-130) L 06/26/24 19:08 Glucose 101 mg/dL (65-115) 06/26/24 19:08 Calculated Osmolality 282 mOsm/kg (285-295) L 06/26/24 19:08 Calcium 9.7 mg/dL (8.5-10.5) 06/26/24 19:08 Total Bilirubin 0.7 mg/dL (0.15-1.2) 06/26/24 19:08 AST 26 U/L (0-32) 06/26/24 19:08 ALT 20 U/L (0-33) 06/26/24 19:08 Alkaline Phosphatase 88 U/L (35-105) 06/26/24 19:08 Total Protein 7.9 g/dL (6.6-8.7) 06/26/24 19:08 Albumin 4.5 g/dL (3.5-5.2) 06/26/24 19:08 Globulin 3.4 g/dL (1.3-4.6) 06/26/24 19:08 HCG, Qual Negative (Negative) 06/26/24 18:12 Influenza A (PCR) Negative (Negative) 06/26/24 18:05 Influenza Type B (PCR) Negative (Negative) 06/26/24 18:05 RSV (PCR) Negative (Negative) 06/26/24 18:05 SARS-CoV-2 (PCR) Negative (Negative) 06/26/24 18:05 All radiology interpretation(s) finalized by discharge Discharge Plan Discharge Patient Disposition: Home Clinical Impression: Headache Condition: Stable Prescriptions: New sumatriptan succinate 100 mg tablet See Rx Instructions .ROUTE .COMPLEX Qty: 14 0RF Rx Instructions: take 1 tab at onset of headache; if no relief, may repeat 1 tab after at least 2 hrs; max = 2 tabs/24 hrs Continued ondansetron 4 mg tablet,disintegrating 4 mg PO Q6H PRN (Reason: nausea and vomiting) Qty: 20 2RF No Action folic acid 1 mg tablet 1 mg PO DAILY Qty: 90 3RF methotrexate sodium 25 mg/mL solution 20 mg SUBCUT .Q7days Qty: 10 1RF (DME) Monoject TB 1 mL 28 gauge x 1/2 syringe See Rx Instructions .Route Qty: 25 1RF Rx Instructions: As directed prednisone 20 mg tablet See Rx Instructions PO .COMPLEX PRN (Reason: joint pain flare) Qty: 30 1RF Rx Instructions: take 1 or 2 tab daily for 3-7 days as needed for arthritis flare PO PRN; cyclobenzaprine 10 mg tablet 10 mg PO DAILY alprazolam 0.25 mg tablet 0.25 mg PO DAILY Qty: 30 0RF Discharge Orders: Discharge ED (Routine); Ordered 06/26/24 Ordered By: Steven George Referrals: Katerin Hughes FNP [Primary Care Provider] - 1-3 days Patient Instructions: Acute Headache (ED), Opioid Safety, Pain Management Activity Restrictions/Additional Instructions: Drink plenty of clear liquids to stay hydrated. Keep checking your blood pressure. Treat with your medication if numbers are above 150/90. Other medications prescribed today as directed. Return for any problems. Call your doctor and be seen this week. Print Language: Mohawk Coding Level of Care Code ED Blanking Machine Operator for Pricila Mcmahon
[2024-06-26 18:36] LABS: Basophils # 0.1 10^3/uL (0.0-0.1); Basophils % 0.9 %; Eosinophils # 0.2 10^3/uL (0.0-0.8); Eosinophils % 3.1 %; Hematocrit 39.2 % (36-47); Lymphocytes # 1.2 10^3/uL (0.8-4.8); Lymphocytes % 19.3 %; Mean Corpuscular HGB Conc 33.7 g/dL (30-55); Mean Corpuscular Hemoglobin 31.2 pg (27-33); Mean Corpuscular Volume 92.7 fl (85-98); Mean Platelet Volume 10.9 fL (7.4-10.4); Monocytes # 0.5 10^3/uL (0.2-0.9); Monocytes % 8.1 %; Neutrophils # 4.41 10^3/uL (1.8-7.7); Neutrophils % 68.4 %; Nucleated Red Blood Cells % 0 %; Platelet Count 226 10^3/cmm (157-399); Red Blood Count 4.23 10^6/uL (3.85-5.65); Red Cell Distribution Width 13.7 % (12.1-15.1); White Blood Count 6.44 10^3/uL (3.29-11.43)
[2024-06-26] MEDS: diphenhydrAMINE 50 mg/mL SDV 1mL 25 MG IVP (18:37)
[2024-06-26] MEDS: prochlorperazine 10 mg/2 mL Inj 5 MG IVP (18:37)
[2024-06-26] MEDS: sodium chloride 0.9% 1,000 ML 999 ML IV (18:37)
[2024-06-26 18:47] LABS: Erythrocyte Sedimentation Rate 1 mm/hr (0-15)
[2024-06-26 18:49] LABS: Influenza A NEGATIVE (Negative); Influenza B NEGATIVE (Negative); Respiratory Syncytial Virus Ce NEGATIVE (Negative); SARS-CoV-2 PCR NEGATIVE (Negative)
[2024-06-26 18:54] LABS: HCG, Serum Qual Negative (Negative)
--- NOTE | 2024-06-26 19:24 | CTR_ITS ---
PROCEDURE INFORMATION: Exam: CT Head Without Contrast Exam date and time: 06/26/2024 7:31 PM Age: 48 years old Clinical indication: Pain; Headache; C/O PEARCE. History of migraines. TECHNIQUE: Imaging protocol: Computed tomography of the head without contrast. Radiation optimization: All CT scans at this facility use at least one of these dose optimization techniques: automated exposure control; mA and/or kV adjustment per patient size (includes targeted exams where dose is matched to clinical indication); or iterative reconstruction. COMPARISON: No relevant prior studies available. RADIATION DOSE METRICS: Total DLP (mGy-cm): 957.08 FINDINGS: Brain: Normal. No hemorrhage. Unremarkable white matter. No mass effect. Cerebral ventricles: No ventriculomegaly. Paranasal sinuses: Visualized sinuses are unremarkable. No fluid levels. Mastoid air cells: Visualized mastoid air cells are well aerated. Bones: Unremarkable. No acute fracture. Soft tissues: Unremarkable. CT/CT head wo con* [id number] IMPRESSION: No acute intracranial abnormality.
[2024-06-26] MEDS: ondansetron 2 mg/ML SDV 2 mL 4 MG IVP (19:44)
[2024-06-26 19:45] LABS: Alanine Aminotransferase 20 U/L (0-33); Albumin Level 4.5 g/dL (3.5-5.2); Alkaline Phosphatase 88 U/L (35-105); Anion Gap 17.6 (5-19); Aspartate Amino Transferase 26 U/L (0-32); Blood Urea Nitrogen 11 mg/dL (6-20); Calcium 9.7 mg/dL (8.5-10.5); Carbon Dioxide 19 mmol/L (22-29); Chloride 103 mmol/L (98-107); Creatinine Clr Calc Pharmacy 72.1312; Globulin 3.4 g/dL (1.3-4.6); Glomerular Filtration Rate 67.1 mL/min (90-130); Glucose 101 mg/dL (65-115); Osmolality Calculated 282 mOsm/kg (285-295); Potassium 3.6 mmol/L (3.5-5.1); Sodium 136 mmol/L (136-145); Total Bilirubin 0.7 mg/dL (0.15-1.2); Total Protein 7.9 g/dL (6.6-8.7)
[2024-06-26] MEDS: ketorolac 30 mg/mL INJ 15 MG IVP ×2 (19:46→20:24)
[2024-06-26] MEDS: fentaNYL 50 mcg/mL INJ 2mL IVP (19:47)
[2024-06-26] MEDS: enalaprilat 2.5 mg/2 mL SDV 1.25 MG IVP (20:26)
== END 2024-06-26 20:57 | disposition home or self-care (01) ==
PROVIDERS: Emergency Medicine; Emergency Provider Emergency Medicine; PCP Nurse Practitioner Family
DX: R51.9 Headache, unspecified (principal); Z11.52 Encounter for screening for COVID-19
CPT/HCPCS: 36415; 70450; 80053; 84703; 85025; 85651; 87637; 96361; 96374; 96375; 96376; 99285; J0780; J1200; J1885; J2405; J3010; J7030